=== PATIENT | male | born 1995 | race Caucasian/White ===

== ENCOUNTER 2020-09-18 22:21 | Emergency (ER) | payer SELFPAY ==
[2020-09-18 22:33] VITALS: BP 124/89; PULSE 86; RESP 18; TEMP 37; O2SAT 97; BMI 22.8
== END 2020-09-19 01:23 | disposition left against medical advice (07) ==
PROVIDERS: Emergency Provider Emergency Medicine; PCP Pediatrics Adolescent Medicine
DX: H53.9 Unspecified visual disturbance (principal)
CPT/HCPCS: 99281; 99282